=== PATIENT | female | born 1970 | race Caucasian/White ===

== ENCOUNTER 2017-05-09 10:27 | Outpatient (CLI) | payer OTHER ==
--- NOTE | 2017-05-10 20:21 | Mammography Report ---
DIGITAL SCREENING MAMMOGRAM: 05/09/2017 CLINICAL INDICATION: A 47-year-old with history of benign biopsy, family history of breast cancer fo r screening. TECHNIQUE: Routine CC and MLO projections were obtained of the breasts as well as bilateral implant displaced views. COMPARISON: 10/2015, 08/2013, 06/2012, 05/2011, 05/2010, 04/2009, 04/2008 FINDINGS: The breasts again demonstrate heterogeneously dense fibroglandular parenchyma bilaterally. Coarse, typically benign calcifications are present. Bilateral subpectoral saline implants are sta ble. No suspicious masses, clustered microcalcifications, or regions of architectural distortion are identified. IMPRESSION: BENIGN FINDINGS. RECOMMENDATION: Routine annual screening unless otherwise clinically indicated. BIRADS CATEGORY 2 - BENIGN FINDINGS. STANDARD QUALIFYING STATEMENTS 1. This examination was reviewed with the aid of Computer-Aided Detection (CAD). 2. A negative or benign imaging report should not delay biopsy if clinically suspicious findings are present. Consider surgical consultation if warranted. More than 5% of cancers are not identified by i maging. 3. Dense breasts may obscure an underlying neoplasm. JOB #: [id number] EXT JOB #:[id number]
== END 2017-05-09 10:28 | disposition home or self-care (01) ==
LOC: DI.N 10:27
PROVIDERS: ATTEND Physician Assistant Medical
DX: Z12.31 Encounter for screening mammogram for malignant neoplasm of breast (principal); Z80.3 Family history of malignant neoplasm of breast
CPT/HCPCS: 77067

== ENCOUNTER 2019-07-10 10:56 | Outpatient (CLI) | payer OTHER ==
--- NOTE | 2019-07-14 11:01 | Mammography Report ---
Reason: SCREENING MAMMO Procedure Date: 07/10/2019 Accession Number: [id number] / [id number] Procedure: MGN - Screening Mammo Dig w/Implants CPT Code: FULL RESULT: EXAM: Screening Mammo Dig w/Implants DATE: 07/10/2019 11:46 AM CLINICAL HISTORY: Routine screening, history of implants mother with breast cancer. TECHNIQUE: (B) - Bilateral CC and MLO views were obtained. COMPARISON: 05/09/2017, 11/02/2015, 09/23/2013 PARENCHYMAL PATTERN: (D) - The breasts demonstrate heterogeneously dense fibroglandular parenchyma bilaterally. FINDINGS: No significant interval change. There are no suspicious masses, calcifications, or areas of distortion. Bilateral breast implants are stable best appreciated on the CC displaced view is a nodule in the medial left breast which is unchanged compared with 2012. This likely lies inferiorly on the lateral projection. IMPRESSION: Negative examination. BI-RADS category 1. RECOMMENDATION: (ANNUAL) - Recommend routine annual screening mammography. BI-RADS CATEGORY: (1) - Negative. STANDARD QUALIFYING STATEMENTS: 1. This examination was not reviewed with the aid of Computer-Aided Detection (CAD). 2. A negative or benign imaging report should not preclude biopsy if clinically suspicious findings are present. 3. Dense breasts may obscure an underlying neoplasm. 4. This examination was reviewed without the aid of 3D breast imaging (tomosynthesis).
== END 2019-07-10 10:57 | disposition home or self-care (01) ==
LOC: DI.N 10:56
DX: Z12.31 Encounter for screening mammogram for malignant neoplasm of breast (principal); Z98.82 Breast implant status; Z80.3 Family history of malignant neoplasm of breast
CPT/HCPCS: 77067

== ENCOUNTER 2019-11-18 14:17 | Outpatient (CLI) | payer OTHER | END 2019-11-18 14:18 | disposition home or self-care (01) | LOC: LAB.R 14:17 | PROVIDERS: ATTEND Family Medicine | DX: N39.0 Urinary tract infection, site not specified (principal) | CPT/HCPCS: 87086; 87181 ==

== ENCOUNTER 2020-03-25 08:00 | Outpatient (CLI) | payer OTHER ==
[2020-03-25 13:28] LABS: BASOPHILS % (AUTO) 0.5 %; EOSINOPHILS # (AUTO) 0.1 10^3/uL (0.0-0.7); EOSINOPHILS % (AUTO) 1.4 %; HGB - HEMOGLOBIN 13.5 g/dL (12.0-16.0); LYMPHOCYTES % (AUTO) 30.3 %; MEAN CORPUSCULAR HEMOGLOBIN 31.3 pg (27.0-31.0); MEAN CORPUSCULAR HGB CONC 31.9 g/dL (32.0-36.0); MEAN CORPUSCULAR VOLUME 98.1 fL (81.0-99.0); MEAN PLATELET VOLUME 10.7 fL (7.9-10.8); MONOCYTES # (AUTO) 0.5 10^3/uL (0.0-1.0); NEUTROPHILS % (AUTO) 60.5 %; PLT - PLATELET COUNT 302 10^3/uL (130-450); RED BLOOD COUNT 4.31 10^6/uL (4.20-5.40); RED CELL DISTRIBUTION WIDTH 13.1 % (12.0-15.0); WHITE BLOOD COUNT 6.6 x10^3/uL (4.8-10.8)
[2020-03-25 13:58] LABS: ALBUMIN 3.6 g/dL (3.2-5.5); ALBUMIN/GLOBULIN RATIO 1.1 (1.0-2.2); ALKALINE PHOSPHATASE 39 IU/L (42-121); ALT ALANINE AMINOTRANSFERASE 20 IU/L (10-60); AST ASPARTATE AMINOTRANSFERASE 27 IU/L (10-42); BILIRUBIN,TOTAL 0.9 mg/dL (0.2-1.0); BUN - BLOOD UREA NITROGEN 26 mg/dL (6-20); CALCIUM 8.6 mg/dL (8.5-10.3); CARBON DIOXIDE - CO2 27 mmol/L (21-32); CHLORIDE 106 mmol/L (101-111); CHOL/HDL RATIO 2.9 (<4.4); CHOLESTEROL 206 mg/dL; CREATININE 0.6 mg/dL (0.4-1.0); GLUCOSE 91 mg/dL (70-100); HDL CHOLESTEROL 71 mg/dL; LDL CHOLESTEROL,CALCULATED 116 mg/dL; LDL/HDL RATIO 1.6 (<4.4); SODIUM 138 mmol/L (135-145); TOTAL PROTEIN 6.8 g/dL (6.7-8.2); VLDL CHOLESTEROL 19 mg/dL
== END 2020-03-25 23:59 | disposition home or self-care (01) ==
LOC: LAB.WCP 08:00
PROVIDERS: ATTEND Physician Assistant Medical
DX: Z00.00 Encounter for general adult medical examination without abnormal findings (principal)
CPT/HCPCS: 36415; 80053; 80061; 83721; 84443; 85025

== ENCOUNTER 2020-03-28 14:11 | Outpatient (CLI) | payer OTHER ==
--- NOTE | 2020-03-28 16:26 | Ultrasound Report ---
Reason: POSTMENOPAUSAL BLEEDING Procedure Date: 03/28/2020 Accession Number: [id number] / [id number] Procedure: US - Pelvic w/Transvaginal CPT Code: Final Report FULL RESULT: PROCEDURE: Pelvic w/Transvaginal INDICATIONS: POSTMENOPAUSAL BLEEDING TECHNIQUE: Real-time scanning was performed of the pelvic organs, with image documentation. Additional endovaginal scanning was necessary due to incomplete visualization of the adnexal and endometrial structures by transabdominal scanning. COMPARISON: CT abdomen pelvis 09/05/2015, ultrasound pelvis 07/10/2013 FINDINGS: Transabdominal scanning: Limited scanning through the kidneys shows no hydronephrosis. No pathologic free abdominal or pelvic fluid. Endovaginal scanning: Uterus: Uterus is normal in size at 12.1 x 5.0 x 8.1 cm. There are focal areas of heterogeneous echogenicity identified. There is seen in the left lateral posterior subserosal region measuring 4.9 x 3.9 x 4.4 cm. A right fundal subserosal focus measuring 1.5 x 1.5 x 1.8 cm is present. A right posterior subserosal focus is identified measuring 2.7 x 2.0 x 2.6 cm. Areas of uterine heterotopic echogenicity appear more prominent when compared to 2012. The endometrium measures 7 mm in combined thickness. Nabothian cyst is present. Area of calcification is noted within the cervix. In addition, a nodular appearing focus of slightly increased echogenicity is noted within the cervix measuring approximately 5 x 8 mm. Ovaries: Right ovary measures 3.8 x 2.6 x 3.47 m. Right ovarian cyst is present measuring 2.4 x 2.2 x 2.4 cm. Left ovary measures 2.3 x 1.2 x 2.4 cm. IMPRESSION: 1. Right ovarian cyst. 2. Focal areas of heterogeneous echogenicity within the uterus appearing most suggestive of fibroids. They appear more prominent when compared to 2012. 3. Nodular focus of echogenicity within the cervix overall nonspecific. This was present on prior exam. Further evaluation with CRIMINOLOGY PROFESSOR consult is recommended. 4. Endometrium measures 7 mm which is considered mildly thickened given postmenopausal bleeding and CRIMINOLOGY PROFESSOR evaluation is recommended. Reviewed by: Martha Laguna MD on 03/28/2020 4:22 PM PDT Approved by: Martha Laguna MD on 03/28/2020 4:22 PM PDT Station ID: [id number]
== END 2020-03-28 14:12 | disposition home or self-care (01) ==
LOC: DI 14:11
PROVIDERS: ATTEND Physician Assistant Medical
DX: N95.0 Postmenopausal bleeding (principal); N83.201 Unspecified ovarian cyst, right side; R93.89 Abnormal findings on diagnostic imaging of other specified body structures
CPT/HCPCS: 76830; 76856

== ENCOUNTER 2020-04-15 16:51 | Outpatient (CLI) | payer OTHER ==
--- NOTE | 2020-04-22 15:43 | Ultrasound Report ---
PROCEDURE: Head or Neck Soft Tissue INDICATIONS: THYROID NODULE TECHNIQUE: Real-time scanning was performed of the thyroid gland, with image documentation. COMPARISON: None FINDINGS: Right: Thyroid lobe measures 4.9 x 1.6 x 1.7 cm, and is homogeneous in echotexture. Left: Thyroid lobe measures 5.5 x 2.3 x 2.4 cm, and is homogenous in echotexture. Isthmus: 5 mm thick. Nodule number: One Location: Right lateral inferior Size: 1.0 x 0.5 x 0.6 cm. Composition: Spongiform Echogenicity: Hypoechoic Shape: wider than tall. Margins: Smooth Echogenic foci: None Total points: 2 ACR TI-RADS category: 2 Nodule number: Two Location: Right medial inferior Size: 0.6 x 0.4 x 0.5 cm. Composition: Spongiform Echogenicity: Hypoechoic Shape: wider than tall. Margins: Smooth Echogenic foci: None Total points: 2 ACR TI-RADS category: 2 Nodule number: Three Location: Isthmus Size: 1.5 x 0.5 x 1.3 cm. Composition: Spongiform Echogenicity: Hypoechoic Shape: wider than tall. Margins: Smooth Echogenic foci: Punctate Total points: 5 ACR TI-RADS category: 4 Nodule number: Four Location: Left superior Size: 0.8 x 0.7 x 0.8 cm. Composition: Cystic Echogenicity: Anechoic Shape: wider than tall. Margins: Smooth Echogenic foci: None Total points: 0 ACR TI-RADS category: 1 Nodule number: 5 Location: Left mid Size: 2.7 x 1.6 x 2.1 cm. Composition: Predominantly cystic Echogenicity: Anechoic Shape: wider than tall. Margins: Smooth Echogenic foci: Punctate Total points: 3 ACR TI-RADS category: 3 IMPRESSION: 1. Lesions 1, 2 and 4 require no additional follow-up as below secondary to small size. 2. Lesion 3 is category 4. FNA is recommended secondary to size and category. 3. Lesion 5 is category 3. FNA is recommended secondary to size and category. ACR TI-RADS definitions and recommendations: TI-RADS 1 (benign): 0 points. FNA not needed. TI-RADS 2 (not suspicious): 2 points. FNA not needed. TI-RADS 3 (mildly suspicious): 3 points. ? FNA if 2.5 cm or larger, follow up if 1.5 cm or larger (at 1, 3, and 5 years). TI-RADS 4 (moderately suspicious): 4-6 points. ? FNA if 1.5 cm or larger, follow up if 1 cm or larger (at 1, 2, 3, and 5 years). TI-RADS 5 (highly suspicious): 7 points or more. ? FNA if 1 cm or larger, follow up if 0.5 cm or larger (every year for 5 years). Reviewed by: Martha Laguna MD on 04/22/2020 3:42 PM PDT Approved by: Martha Laguna MD on 04/22/2020 3:42 PM PDT Station ID: [id number]
== END 2020-04-15 16:52 | disposition home or self-care (01) ==
LOC: DI 16:51
PROVIDERS: ATTEND Physician Assistant Medical
DX: E04.2 Nontoxic multinodular goiter (principal)
CPT/HCPCS: 76536

== ENCOUNTER 2020-09-29 15:17 | Outpatient (CLI) | payer OTHER | END 2020-09-29 15:18 | disposition home or self-care (01) | LOC: COV 15:17 | PROVIDERS: ATTEND Family Medicine | DX: R50.9 Fever, unspecified (principal); R06.02 Shortness of breath; M79.10 Myalgia, unspecified site; J34.89 Other specified disorders of nose and nasal sinuses; R09.81 Nasal congestion; Z20.828 Contact with and (suspected) exposure to other viral communicable diseases ==

== ENCOUNTER 2020-12-14 07:00 | Outpatient (CLI) | payer OTHER ==
[2020-12-14 12:46] LABS: BASOPHILS % (AUTO) 0.6 %; EOSINOPHILS # (AUTO) 0.1 10^3/uL (0.0-0.7); EOSINOPHILS % (AUTO) 1.3 %; HGB - HEMOGLOBIN 13.7 g/dL (12.0-16.0); LYMPHOCYTES # (AUTO) 1.7 10^3/uL (1.5-3.5); LYMPHOCYTES % (AUTO) 35.8 %; MEAN CORPUSCULAR HEMOGLOBIN 32.1 pg (27.0-31.0); MEAN CORPUSCULAR HGB CONC 32.6 g/dL (32.0-36.0); MEAN CORPUSCULAR VOLUME 98.4 fL (81.0-99.0); MEAN PLATELET VOLUME 11.2 fL (7.9-10.8); MONOCYTES # (AUTO) 0.4 10^3/uL (0.0-1.0); MONOCYTES % (AUTO) 9.4 %; NEUTROPHILS # (AUTO) 2.5 10^3/uL (1.5-6.6); NEUTROPHILS % (AUTO) 52.7 %; PLT - PLATELET COUNT 291 10^3/uL (130-450); RED BLOOD COUNT 4.27 10^6/uL (4.20-5.40); RED CELL DISTRIBUTION WIDTH 13.4 % (12.0-15.0); WHITE BLOOD COUNT 4.7 x10^3/uL (4.8-10.8)
[2020-12-14 13:16] LABS: ALBUMIN 4.2 g/dL (3.2-5.5); ALBUMIN/GLOBULIN RATIO 1.7 (1.0-2.2); ALKALINE PHOSPHATASE 38 IU/L (42-121); ALT ALANINE AMINOTRANSFERASE 19 IU/L (10-60); AST ASPARTATE AMINOTRANSFERASE 31 IU/L (10-42); BILIRUBIN,TOTAL 0.9 mg/dL (0.2-1.0); BUN - BLOOD UREA NITROGEN 29 mg/dL (6-20); CALCIUM 8.9 mg/dL (8.5-10.3); CARBON DIOXIDE - CO2 23 mmol/L (21-32); CHLORIDE 100 mmol/L (101-111); CHOL/HDL RATIO 3.6 (<4.4); CHOLESTEROL 300 mg/dL; CREATININE 0.6 mg/dL (0.4-1.0); GLUCOSE 83 mg/dL (70-100); HDL CHOLESTEROL 83 mg/dL; LDL CHOLESTEROL,CALCULATED 201 mg/dL; LDL/HDL RATIO 2.4 (<4.4); TOTAL PROTEIN 6.7 g/dL (6.7-8.2); VLDL CHOLESTEROL 16 mg/dL
[2020-12-14 13:27] LABS: CRP - C-REACTIVE PROTEIN < 1.0 mg/dL (0-1.0)
[2020-12-14 16:52] LABS: RHEUMATOID FACTOR NEGATIVE (Negative)
[2020-12-16 17:57] LABS: ANA SCREEN NEGATIVE (NEGATIVE)
== END 2020-12-14 23:59 | disposition home or self-care (01) ==
LOC: LAB.WCP 07:00
PROVIDERS: ATTEND Physician Assistant Medical
DX: Z00.00 Encounter for general adult medical examination without abnormal findings (principal); M25.50 Pain in unspecified joint
CPT/HCPCS: 36415; 80053; 80061; 82306; 83721; 84443; 85025; 85651; 86038; 86140; 86430

== ENCOUNTER 2020-12-23 06:55 | Outpatient (CLI) | payer OTHER ==
--- NOTE | 2020-12-23 09:20 | Ultrasound Report ---
PROCEDURE: Aorta Screening INDICATIONS: EPIGASTRIC PAIN TECHNIQUE: Real time scanning was performed of the aorta and iliac arteries, with image documentatio n. COMPARISON: None FINDINGS: Aorta: Proximal aortic diameter measures 2.4 x 2.3 cm. Mid-aorta measures 2.1 x 2.1 cm. Distal aor tic diameter is 2.0 x 1.7 cm. Iliac arteries: Right common iliac artery measures 1.2 x 1.1 cm. Left common iliac artery measures 1.2 x 1.0 cm. Minimal right iliac plaque. IMPRESSION: No aneurysmal dilation. Minimal calcified plaque. Reviewed by: Martha Laguna MD on 12/23/2020 8:19 AM [facility] Approved by: Martha Laguna MD on 12/23/2020 8:19 AM [facility] Station ID: [id number]
--- NOTE | 2020-12-23 15:48 | Ultrasound Report ---
PROCEDURE: Head or Neck Soft Tissue INDICATIONS: THYROID NODULE TECHNIQUE: Real-time scanning was performed of the thyroid gland, with image documentation. COMPARISON: None FINDINGS: Right: Thyroid lobe measures Size cm, and is homogeneous in echotexture. Left: Thyroid lobe measures Size cm, and is homogenous in echotexture. Isthmus: Size mm thick. Nodule number: One Location: Right inferior medial Size: 1.0 x 0.6 x 0.6 cm., Unchanged Composition: Solid Echogenicity: Hypoechoic Shape: wider than tall. Margins: Smooth Echogenic foci: None Total points: 4 ACR TI-RADS category: 4 Nodule number: Two Location: Right inferior lateral Size: 0.7 x 0.7 x 0.5 cm compared to 0.6 x 0.4 x 0.5 cm. Composition: Spongiform Echogenicity: Hypoechoic Shape: wider than tall. Margins: Smooth Echogenic foci: None Total points: 2 ACR TI-RADS category: 2 Nodule number: Three Location: Right isthmus Size: 1.2 x 0.4 x 1.1 cm compared to 1.5 x 0.5 x 1.3 cm Composition: Spongiform Echogenicity: Hypoechoic Shape: wider than tall. Margins: Smooth Echogenic foci: Punctate Total points: 5 ACR TI-RADS category: 4 Nodule number: Four Location: Left superior Size: 0.7 x 0.6 x 0.6 cm. Compared to prior exam. Compared to prior exam Composition: Spongiform Echogenicity: Hypoechoic Shape: wider than tall. Margins: Smooth Echogenic foci: None Total points: 2 ACR TI-RADS category: 2 Nodule number: 5 Location: Left superior Size: 1.7 x 0.5 x 1.5 cm compared to 0.8 x 0.7 x 0.8 cm Composition: Cystic Echogenicity: Anechoic Shape: wider than tall. Margins: Smooth Echogenic foci: Punctate Total points: 3 ACR TI-RADS category: 3 Nodule number: 6 Location: Left superior posterior Size: 1.3 x 0.6 x 0.8 cm. New compared to prior exam Composition: Spongiform Echogenicity: Hypoechoic Shape: wider than tall. Margins: Smooth Echogenic foci: None Total points: 2 ACR TI-RADS category: 2 Nodule number: 7 Location: Left mid lobe medially Size: 0.7 x 0.5 x 0.3 cm compared to 2.7 x 1.6 x 2.1 cm. This was previously biopsied Composition: Solid Echogenicity: Hypoechoic Shape: wider than tall. Margins: Smooth Echogenic foci: Punctate Total points: 4 ACR TI-RADS category: 4 IMPRESSION: 1. Lesions 4 and 6 are new compared to prior exam. Given category 2, no additional follow-up is recom mended. 2. Continue follow-up of lesion 1 given category 4 and size of 1 cm or larger at 1, 2, 3 and 5 years from initial visualization. 3. Lesion 2 is category 2 and no additional follow-up is recommended. 4. Biopsy lesions 3 and 7 may be reassessed when follow-up of lesion 1 is obtained. ACR TI-RADS definitions and recommendations: TI-RADS 1 (benign): 0 points. FNA not needed. TI-RADS 2 (not suspicious): 2 points. FNA not needed. TI-RADS 3 (mildly suspicious): 3 points. ? FNA if 2.5 cm or larger, follow up if 1.5 cm or larger (at 1, 3, and 5 years). TI-RADS 4 (moderately suspicious): 4-6 points. ? FNA if 1.5 cm or larger, follow up if 1 cm or larger (at 1, 2, 3, and 5 years). TI-RADS 5 (highly suspicious): 7 points or more. ? FNA if 1 cm or larger, follow up if 0.5 cm or larger (every year for 5 years). Reviewed by: Martha Laguna MD on 12/23/2020 2:46 PM [place] Approved by: Martha Laguna MD on 12/23/2020 2:46 PM [facility] Station ID: [id number]
== END 2020-12-23 06:56 | disposition home or self-care (01) ==
LOC: DI 06:55
PROVIDERS: ATTEND Physician Assistant Medical
DX: R10.13 Epigastric pain (principal); R09.89 Other specified symptoms and signs involving the circulatory and respiratory systems; E04.1 Nontoxic single thyroid nodule

== ENCOUNTER 2021-01-06 06:57 | Outpatient (CLI) | payer OTHER ==
--- NOTE | 2021-01-06 12:10 | Ultrasound Report ---
PROCEDURE: Abdomen Complete INDICATIONS: EPIGASTRIC PAIN TECHNIQUE: Real-time scanning was performed of the abdominal and retroperitoneal organs, with image documentatio n. COMPARISON: None. FINDINGS: Liver: Liver is normal in size and slightly heterogeneous in echotexture. Gallbladder: The gallbladder is normal without stones, sludge, wall thickening, or pericholecystic fl uid. Biliary ducts: Intrahepatic bile ducts are non-dilated. Extrahepatic bile duct caliber measures 4 m m. Normal is 6-7 mm or less in diameter, or 10 mm or less post-cholecystectomy. Pancreas: Visualized portions of the pancreas are sonographically normal. Spleen: Spleen is normal in size and homogeneous in echotexture. Kidneys: Kidneys are normal in size and echotexture. Right kidney measures 10.0 cm long; left kidne y measures 11.2 cm long. No hydronephrosis or nephrolithiasis. No solid masses. Aorta: Visualized aorta is normal in caliber at less than 3 cm. Iliacs: Proximal common iliac arteries are normal in caliber at less than 2.5 cm. Small amount of r ight common iliac artery plaque. IVC: Intrahepatic inferior vena cava is patent. Miscellaneous: No free abdominal fluid. No evidence of hernia in the area of lump. IMPRESSION: 1. Normal pancreas and gallbladder. 2. No evidence of epigastric hernia. If there is continued concern for hernia, CT of the abdomen coul d be performed. Reviewed by: Teena Diaz MD on 01/06/2021 12:09 PM PST Approved by: Teena Diaz MD on 01/06/2021 12:09 PM PST Station ID: [id number]
== END 2021-01-06 06:58 | disposition home or self-care (01) ==
LOC: DI 06:57
PROVIDERS: ATTEND Physician Assistant Medical
DX: R10.13 Epigastric pain (principal)

== ENCOUNTER 2021-03-09 08:00 | Outpatient (CLI) | payer OTHER ==
[2021-03-09 12:37] LABS: CHOL/HDL RATIO 3.3 (<4.4); CHOLESTEROL 258 mg/dL; HDL CHOLESTEROL 79 mg/dL; LDL CHOLESTEROL,CALCULATED 163 mg/dL; LDL/HDL RATIO 2.1 (<4.4); TRIGLYCERIDES 82 mg/dL; VLDL CHOLESTEROL 16 mg/dL
== END 2021-03-09 23:59 | disposition home or self-care (01) ==
LOC: LAB.WCP 08:00
PROVIDERS: ATTEND Physician Assistant Medical
DX: E78.5 Hyperlipidemia, unspecified (principal)
CPT/HCPCS: 36415; 80061; 83721

== ENCOUNTER 2021-04-13 12:39 | Outpatient (CLI) | payer OTHER ==
--- NOTE | 2021-04-14 10:35 | Mammography Report ---
BILATERAL DIGITAL SCREENING MAMMOGRAM 3D/2D WITH AUGMENTATION: 04/13/2021 CLINICAL: Routine screening. Comparison is made to exams dated: 07/10/2019 mammogram, 05/09/2017 mammogram, and 11/02/2015 mammogram - [facility]. There are scattered fibroglandular elements in both breasts. Bilateral breast implants are stable and intact. No significant masses, calcifications, or other findings are seen in either breast. There has been no significant interval change. IMPRESSION: NEGATIVE There is no mammographic evidence of malignancy. A 1 year screening mammogram is recommended. This exam was interpreted at Station ID: [id number]. NOTE: For mammograms, a report in lay terms will be sent to the patient. Approximately 15% of breast malignancies will not be visualized mammographically. In the management of a palpable breast mass, a negative mammogram must not discourage biopsy of a clinically suspicious lesion. Electronically Signed By: Jose Jackman M.D. slc/penrad:04/13/2021 14:01:39 ACR BI-RADS Category 1: Negative 3341F PARENCHYMAL PATTERN: (A) - The breast(s) demonstrate(s) scattered fibroglandular densities. BI-RADS CATEGORY: (1) - 1 RECOMMENDATION: (ANNUAL) - Recommend routine annual screening mammography. [id number] 1 year screening LATERALITY: (B)
== END 2021-04-13 12:40 | disposition home or self-care (01) ==
LOC: DI 12:39
DX: Z12.31 Encounter for screening mammogram for malignant neoplasm of breast (principal)

== ENCOUNTER 2021-08-11 07:21 | Outpatient (CLI) | payer OTHER ==
[2021-08-11 13:19] LABS: CHOL/HDL RATIO 3.5 (<4.4); CHOLESTEROL 241 mg/dL; HDL CHOLESTEROL 69 mg/dL; LDL CHOLESTEROL,CALCULATED 152 mg/dL; LDL/HDL RATIO 2.2 (<4.4); TRIGLYCERIDES 98 mg/dL; VLDL CHOLESTEROL 20 mg/dL
== END 2021-08-11 23:59 | disposition home or self-care (01) ==
LOC: LAB.WCP 07:21
PROVIDERS: ATTEND Physician Assistant Medical
DX: E78.5 Hyperlipidemia, unspecified (principal)
CPT/HCPCS: 36415; 80061; 83721

== ENCOUNTER 2021-12-22 06:54 | Outpatient (CLI) | payer OTHER ==
--- NOTE | 2021-12-22 19:30 | Ultrasound Report ---
PROCEDURE: Head or Neck Soft Tissue INDICATIONS: THYROID NODULE TECHNIQUE: Real-time scanning was performed of the thyroid gland, with image documentation. COMPARISON: 12/23/2020 FINDINGS: Right: Thyroid lobe measures 5.3 x 1.5 x 1.7 cm, and is homogeneous in echotexture. Left: Thyroid lobe measures 5.1 x 1.9 x 1.7 cm, and is homogenous in echotexture. Isthmus: 2 mm thick. Nodule number: One Location: Right inferior medial Size: 1.2 x 0.7 x 0.6 cm, previously 1.0 x 0.6 x 0.6 cm., Unchanged Composition: Solid Echogenicity: Hypoechoic Shape: wider than tall. Margins: Smooth Echogenic foci: Punctate Total points: 7 ACR TI-RADS category: 5 Nodule number: Two Location: Right inferior lateral Size: 0.8 x 0.7 x 0.7 cm, previously 0.7 x 0.7 x 0.5 cm . Composition: Predominantly solid Echogenicity: Hypoechoic Shape: wider than tall. Margins: Smooth Echogenic foci: None Total points: 4 ACR TI-RADS category: 4 Nodule number: Three Location: Right isthmus Size: 1.2 x 0.4 x 0.9 cm, previous 1.2 x 0.4 x 1.1 cm Composition: Spongiform Echogenicity: Hypoechoic Shape: wider than tall. Margins: Smooth Echogenic foci: Punctate Total points: 5 ACR TI-RADS category: 4 Nodule number: Four Location: Left superior Size: 0.6 x 0.5 x 0.5 cm, previously 0.7 x 0.6 x 0.6 cm. Composition: Spongiform Echogenicity: Hypoechoic Shape: wider than tall. Margins: Smooth Echogenic foci: Punctate Total points: 5 ACR TI-RADS category: 4 Nodule number: 5 Location: Left superior Size: 1.8 x 1.1 x 1.4 cm, previously 1.7 x 0.5 x 1.5 cm Composition: Cystic Echogenicity: Anechoic Shape: wider than tall. Margins: Smooth Echogenic foci: Punctate Total points: 3 ACR TI-RADS category: 3 Nodule number: 6 Location: Left superior posterior Size: Not currently visualized Nodule number: 7 Location: Left mid lobe medially Size: 0.6 x 0.2 x 0.3 cm, previously 0.7 x 0.5 x 0.3 cm Composition: Solid Echogenicity: Hyperechoic Shape: wider than tall. Margins: Smooth Echogenic foci: Macrocalcifications Total points: 4 ACR TI-RADS category: 4 IMPRESSION: Stable thyroid nodules. Consider biopsy of nodule #1 if not already performed. Otherwise, continue be st practice is surveillance schedule as below ACR TI-RADS definitions and recommendations: TI-RADS 1 (benign): 0 points. FNA not needed. TI-RADS 2 (not suspicious): 2 points. FNA not needed. TI-RADS 3 (mildly suspicious): 3 points. "FNA if 2.5 cm or larger, follow up if 1.5 cm or larger (at 1, 3, and 5 years). TI-RADS 4 (moderately suspicious): 4-6 points. "FNA if 1.5 cm or larger, follow up if 1 cm or larger (at 1, 2, 3, and 5 years). TI-RADS 5 (highly suspicious): 7 points or more. "FNA if 1 cm or larger, follow up if 0.5 cm or larger (every year for 5 years). Reviewed by: Carter Ford MD on 12/22/2021 6:28 PM [facility] Approved by: Carter Ford MD on 12/22/2021 6:28 PM [facility] Station ID: [id number]
== END 2021-12-22 06:55 | disposition home or self-care (01) ==
LOC: DI 06:54
PROVIDERS: ATTEND Physician Assistant Medical
DX: E04.2 Nontoxic multinodular goiter (principal)

== ENCOUNTER 2022-01-29 07:14 | Outpatient (CLI) | payer OTHER ==
[2022-01-29 12:22] LABS: BASOPHILS % (AUTO) 0.8 %; EOSINOPHILS # (AUTO) 0.1 10^3/uL (0.0-0.7); EOSINOPHILS % (AUTO) 1.3 %; HGB - HEMOGLOBIN 13.2 g/dL (12.0-16.0); LYMPHOCYTES # (AUTO) 1.7 10^3/uL (1.5-3.5); LYMPHOCYTES % (AUTO) 36.5 %; MEAN CORPUSCULAR HEMOGLOBIN 31.4 pg (27.0-31.0); MEAN CORPUSCULAR VOLUME 95.2 fL (81.0-99.0); MEAN PLATELET VOLUME 10.5 fL (7.9-10.8); MONOCYTES # (AUTO) 0.4 10^3/uL (0.0-1.0); MONOCYTES % (AUTO) 8.4 %; NEUTROPHILS # (AUTO) 2.5 10^3/uL (1.5-6.6); NEUTROPHILS % (AUTO) 52.6 %; PLT - PLATELET COUNT 299 10^3/uL (130-450); RED CELL DISTRIBUTION WIDTH 13.2 % (12.0-15.0); WHITE BLOOD COUNT 4.8 x10^3/uL (4.8-10.8)
[2022-01-29 12:36] LABS: ALBUMIN 4.1 g/dL (3.2-5.5); ALBUMIN/GLOBULIN RATIO 1.4 (1.0-2.2); ALKALINE PHOSPHATASE 48 IU/L (42-121); ALT ALANINE AMINOTRANSFERASE 26 IU/L (10-60); AST ASPARTATE AMINOTRANSFERASE 26 IU/L (10-42); BILIRUBIN,TOTAL 1.1 mg/dL (0.2-1.0); BUN - BLOOD UREA NITROGEN 23 mg/dL (6-20); CARBON DIOXIDE - CO2 27 mmol/L (21-32); CHLORIDE 102 mmol/L (101-111); CHOL/HDL RATIO 3.1 (<4.4); CHOLESTEROL 257 mg/dL; CREATININE 0.6 mg/dL (0.4-1.0); GFR - MDRD 105 (>89); GLUCOSE 100 mg/dL (70-100); HDL CHOLESTEROL 83 mg/dL; LDL CHOLESTEROL,CALCULATED 158 mg/dL; LDL/HDL RATIO 1.9 (<4.4); POTASSIUM 4.2 mmol/L (3.5-5.0); SODIUM 137 mmol/L (135-145); TRIGLYCERIDES 82 mg/dL; VLDL CHOLESTEROL 16 mg/dL
[2022-01-29 12:48] LABS: THYROID STIMULATING HORMONE 1.85 uIU/mL (0.34-5.60)
[2022-01-29 13:16] LABS: FOLLICLE STIMULATING HORMONE 36.21 mIU/mL
[2022-01-30 04:56] LABS: PROGESTERONE <0.5 ng/mL
[2022-01-30 05:56] LABS: ESTRADIOL 97 pg/mL
== END 2022-01-29 07:15 | disposition home or self-care (01) ==
LOC: LAB.N 07:14
PROVIDERS: ATTEND Physician Assistant Medical
DX: Z00.00 Encounter for general adult medical examination without abnormal findings (principal); E78.5 Hyperlipidemia, unspecified; E04.1 Nontoxic single thyroid nodule
CPT/HCPCS: 36415; 80053; 80061; 82670; 83001; 83721; 84144; 84443; 85025

== ENCOUNTER 2022-08-30 08:47 | Outpatient (CLI) | payer OTHER ==
[2022-08-30 13:16] LABS: THYROID STIMULATING HORMONE 1.72 uIU/mL (0.34-5.60)
[2022-08-30 13:18] LABS: FREE T3 3.43 pg/mL (2.5-3.9); FREE T4 (FREE THYROXINE) 0.75 ng/dL (0.58-1.64)
[2022-08-31 16:08] LABS: THYROGLOBULIN ANTIBODY <1.0 IU/mL (0.0-0.9); THYROID PEROXIDASE (TPO) AB <8 IU/mL (0-34)
== END 2022-08-30 08:48 | disposition home or self-care (01) ==
LOC: MERGE 08:47 → LAB.N 08:47
PROVIDERS: ATTEND Physician Assistant
DX: E04.9 Nontoxic goiter, unspecified (principal)
CPT/HCPCS: 36415; 84439; 84443; 84481; 86376; 86800

== ENCOUNTER 2022-09-03 07:44 | Outpatient (CLI) | payer OTHER ==
--- NOTE | 2022-09-13 11:26 | Ultrasound Report ---
PROCEDURE: Head or Neck Soft Tissue INDICATIONS: GOITER, LUMP IN THROAT TECHNIQUE: Real-time scanning was performed of the thyroid gland, with image documentation. COMPARISON: 12/22/2021 FINDINGS: Right: Thyroid lobe measures 4.7 x 1.7 x 1.6 cm, and is heterogeneous in echotexture. Left: Thyroid lobe measures 4.9 x 1.6 x 1.7 cm, and is heterogeneous in echotexture. Isthmus: 2.4 mm thick. Nodule number: One Location: Lower pole of right thyroid lobe medial aspect Size: 1 x 0.6 x 0.7 cm, previously 1.2 x 0.6 x 0.7 cm. Composition: Predominantly solid Echogenicity: Hypoechoic Shape: wider than tall. Margins: Smooth Echogenic foci: Punctate Total points: 6 ACR TI-RADS category: Moderately suspicious Nodule number: Two Location: Lateral aspect of lower pole right thyroid lobe Size: 0.8 x 0.6 x 0.6 cm, previously 0.8 x 0.7 x 0.7 cm. Composition: Predominantly solid Echogenicity: Hypoechoic Shape: wider than tall. Margins: Smooth Echogenic foci: None Total points: 4 ACR TI-RADS category: Moderately suspicious Nodule number: Three Location: Medial aspect of right thyroid lobe/isthmus Size: 1.1 x 0.3 x 1 cm, previously 1.2 x 0.4 x 0.9 cm. Composition: Spongiform Echogenicity: Hypoechoic Shape: wider than tall. Margins: Smooth Echogenic foci: Punctate Total points: 6 ACR TI-RADS category: Moderately suspicious. Nodule number: Four Location: Upper pole left thyroid lobe Size: 0.7 x 0.5 x 0.6 cc, previously 0.6 x 0.5 x 0.5 cm. Composition: Spongiform Echogenicity: Hypoechoic Shape: wider than tall. Margins: Smooth Echogenic foci: Punctate Total points: 6 ACR TI-RADS category: Moderately suspicious. Nodule number: 5 Location: Upper pole left thyroid lobe Size: 1.2 x 0.6 x 1.2 cc, previously 1.8 x 1.1 x 1.4 cm. Composition: Cystic Echogenicity: Hypoechoic Shape: wider than tall. Margins: Smooth Echogenic foci: None Total points: 2 ACR TI-RADS category: Not suspicious. Nodule number: 6 Location: Posterior aspect of upper pole left thyroid lobe. Size: No longer seen on the current study. 1.3 x 0.6 x 0.8 cm seen on 04/15/2020 study. Nodule number: 7 Location: Mid pole left thyroid lobe Size: 0.5 x 0.4 x 0.5 cc, previously 0.6 x 0.2 x 0.3 cm. Composition: Solid Echogenicity: Hypoechoic Shape: wider than tall. Margins: Ill-defined Echogenic foci: Macrocalcifications Total points: 6 ACR TI-RADS category: Moderately suspicious. IMPRESSION: 1. Patient is known bilateral thyroid nodules are essentially stable in size and appearance from prio r study. Continued ultrasound follow-up is recommended. ACR TI-RADS definitions and recommendations: TI-RADS 1 (benign): 0 points. FNA not needed. TI-RADS 2 (not suspicious): 2 points. FNA not needed. TI-RADS 3 (mildly suspicious): 3 points. "FNA if 2.5 cm or larger, follow up if 1.5 cm or larger (at 1, 3, and 5 years). TI-RADS 4 (moderately suspicious): 4-6 points. "FNA if 1.5 cm or larger, follow up if 1 cm or larger (at 1, 2, 3, and 5 years). TI-RADS 5 (highly suspicious): 7 points or more. "FNA if 1 cm or larger, follow up if 0.5 cm or larger (every year for 5 years). Reviewed by: Paul Sung MD on 09/13/2022 11:25 AM PST Approved by: Paul Sung MD on 09/13/2022 11:25 AM PST Station ID: [id number]
== END 2022-09-03 07:45 | disposition home or self-care (01) ==
LOC: DI 07:44 → MERGE 07:44 → DI 07:45
PROVIDERS: ATTEND Physician Assistant
DX: E04.2 Nontoxic multinodular goiter (principal)

== ENCOUNTER 2024-02-20 14:22 | Outpatient (CLI) | payer BC ==
--- NOTE | 2024-02-21 08:07 | Mammography Report ---
BILATERAL DIGITAL SCREENING MAMMOGRAM 3D/2D WITH AUGMENTATION: 02/20/2024 CLINICAL: Routine screening. Family history of breast cancer. Comparison is made to exams dated: 06/06/2022 mammogram, 04/13/2021 mammogram, 07/10/2019 mammogram, mammogram, 11/02/2015 mammogram, and 09/23/2013 mammogram - [facility]. There are scattered areas of fibroglandular density in both breasts (category b / 25%-50% glandular t issue). There is an asymmetry in the left breast middle depth superior region seen on the mediolateral obliqu e view only. No other significant masses, calcifications, or other findings are seen in either breast. IMPRESSION: INCOMPLETE: NEEDS ADDITIONAL IMAGING EVALUATION The asymmetry in the left breast is indeterminate. Additional views with possible ultrasound are rec ommended. Based on the Tyrer Cuzick model (a risk assessment model) the patient's lifetime risk is 15.8% and he r 10 year risk is 4.9%. According to the ACR, ACS, and NCCN guidelines, an annual breast MRI exam shayy ng with mammogram is recommended if the patient's lifetime risk is 20% or greater. This exam was interpreted at Station ID: [id number]. NOTE: For mammograms, a report in lay terms will be sent to the patient. Approximately 15% of breast malignancies will not be visualized mammographically. In the management of a palpable breast mass, a negative mammogram must not discourage biopsy of a clinically suspicious lesion. Electronically Signed By: Camilo denson/ej:02/20/2024 15:08:39 ACR BI-RADS Category 0: Incomplete 3340F PARENCHYMAL PATTERN: (A) - The breast(s) demonstrate(s) scattered fibroglandular densities. BI-RADS CATEGORY: (0) - 0 Mammo and [place] [id number] Immediate follow-up LATERALITY: (B)
== END 2024-02-20 14:23 | disposition home or self-care (01) ==
LOC: DI.N 14:22
DX: Z12.31 Encounter for screening mammogram for malignant neoplasm of breast (principal); Z80.3 Family history of malignant neoplasm of breast; R92.323 Mammographic fibroglandular density, bilateral breasts; R92.8 Other abnormal and inconclusive findings on diagnostic imaging of breast

== ENCOUNTER 2024-02-26 07:19 | Outpatient (CLI) | payer BC ==
[2024-02-26 12:00] LABS: BASOPHILS % (AUTO) 0.7 %; EOSINOPHILS # (AUTO) 0.1 10^3/uL (0.0-0.7); EOSINOPHILS % (AUTO) 1.3 %; HGB - HEMOGLOBIN 13.4 g/dL (12.0-16.0); LYMPHOCYTES # (AUTO) 1.5 10^3/uL (1.5-3.5); LYMPHOCYTES % (AUTO) 32.6 %; MEAN CORPUSCULAR HEMOGLOBIN 31.8 pg (27.0-31.0); MEAN CORPUSCULAR HGB CONC 33.5 g/dL (32.0-36.0); MEAN PLATELET VOLUME 10.8 fL (7.9-10.8); MONOCYTES # (AUTO) 0.4 10^3/uL (0.0-1.0); MONOCYTES % (AUTO) 8.4 %; NEUTROPHILS # (AUTO) 2.6 10^3/uL (1.5-6.6); NEUTROPHILS % (AUTO) 56.8 %; PLT - PLATELET COUNT 280 10^3/uL (130-450); RED BLOOD COUNT 4.21 10^6/uL (4.20-5.40); RED CELL DISTRIBUTION WIDTH 12.8 % (12.0-15.0); WHITE BLOOD COUNT 4.5 x10^3/uL (4.8-10.8)
[2024-02-26 12:30] LABS: THYROID STIMULATING HORMONE 1.65 uIU/mL (0.34-5.60)
[2024-02-26 12:37] LABS: ALBUMIN 4.3 g/dL (3.2-5.5); ALBUMIN/GLOBULIN RATIO 1.5 (1.0-2.2); ALKALINE PHOSPHATASE 64 IU/L (42-121); ALT ALANINE AMINOTRANSFERASE 14 IU/L (10-60); AST ASPARTATE AMINOTRANSFERASE 21 IU/L (10-42); BILIRUBIN,TOTAL 0.7 mg/dL (0.2-1.0); BUN - BLOOD UREA NITROGEN 30 mg/dL (6-20); CALCIUM 9.9 mg/dL (8.5-10.3); CARBON DIOXIDE - CO2 28 mmol/L (21-32); CHLORIDE 107 mmol/L (101-111); CHOLESTEROL 222 mg/dL; CREATININE 0.7 mg/dL (0.6-1.3); GFR - MDRD 87 (>89); GLUCOSE 98 mg/dL (74-104); HDL CHOLESTEROL 74 mg/dL; LDL CHOLESTEROL,CALCULATED 131 mg/dL; LDL/HDL RATIO 1.8 (<4.4); MAGNESIUM 1.9 mg/dL (1.7-2.3); POTASSIUM 4.1 mmol/L (3.5-4.5); SODIUM 140 mmol/L (135-145); TOTAL PROTEIN 7.1 g/dL (6.4-8.9); TRIGLYCERIDES 87 mg/dL (48-352); VLDL CHOLESTEROL 17 mg/dL
[2024-02-27 08:11] LABS: ESTRADIOL <5.0 pg/mL (.); PROGESTERONE 0.1 ng/mL (.)
== END 2024-02-26 07:20 | disposition home or self-care (01) ==
LOC: LAB.N 07:19
PROVIDERS: ATTEND Physician Assistant Medical
DX: Z00.00 Encounter for general adult medical examination without abnormal findings (principal); R23.2 Flushing; N95.1 Menopausal and female climacteric states; R00.2 Palpitations
CPT/HCPCS: 36415; 80053; 80061; 82670; 83001; 83721; 83735; 84144; 84443; 85025

== ENCOUNTER 2024-06-18 07:50 | Outpatient (CLI) | payer BC ==
--- NOTE | 2024-06-18 15:01 | DEXA Report ---
PROCEDURE: Dexa Spine and/or Hip INDICATIONS: POST MENOPAUSAL TECHNIQUE: Dual energy x-ray absorptiometry (DXA) was performed on a [employer]. Regions measur ed are the AP Spine, femoral neck, and if needed forearm. COMPARISON: None FINDINGS: Lumbar Spine: Bone Mineral Density: 1.098 g/cm/cm,T score: -0.7. Normal Left Femoral Neck: Bone Mineral Density: 0.935 g/cm/cm, T score: -0.7. Left Hip: Bone Mineral Density: 0.983 g/cm/cm,T score: -2. FRAX risk factors: None given. Not listed due to normal bone mineral density. (T score greater or equal to -1.0: NORMAL) (T score from -1.1 to -2.4: OSTEOPENIA) (T score less than or equal to -2.5 to: OSTEOPOROSIS) Impression: By WHO criteria, this patient has normal bone density. Patients with diagnosis of osteoporosis or osteopenia should have regular bone mineral density assess ment. For those eligible for Medicare, routine testing is allowed once every 2 years. Testing frequ ency can be increased for patients who have rapidly progressing disease or for those who are receivin g medical therapy to restore bone mass. Reviewed by: Dustin Cohen MD on 06/18/2024 3:00 PM PDT Approved by: Dustin Cohen MD on 06/18/2024 3:00 PM PDT Station ID: [id number]
== END 2024-06-18 07:51 | disposition home or self-care (01) ==
LOC: DI 07:50
PROVIDERS: ATTEND Physician Assistant Medical
DX: Z78.0 Asymptomatic menopausal state (principal)

== ENCOUNTER 2024-06-18 07:51 | Outpatient (CLI) | payer BC ==
--- NOTE | 2024-06-18 19:21 | Ultrasound Report ---
PROCEDURE: Soft Tissue Head or Neck INDICATIONS: GOITER TECHNIQUE: Real-time scanning was performed of the thyroid gland, with image documentation. COMPARISON: Ultrasound thyroid 09/03/2022, 12/22/2021, 12/23/2020, 05/25/2020, 04/15/2020 FINDINGS: Right: Thyroid lobe measures 5.0 x 1.7 x 2.1 cm. Left: Thyroid lobe measures 4.9 x 1.6 x 1.9 cm Isthmus: 0.3 cm thick. Echotexture: Heterogeneous. Nodule number: One Location: Right inferior Size: 1.2 x 0.8 x 0.8 cm compared to 1.0 x 0.6 x 0.7 cm. Composition: Solid. Echogenicity: Hypoechoic. Shape: wider than tall (0 points). Margins: Smooth (0 points). Echogenic foci: Punctate. Total points: 7 ACR TI-RADS category: 5 Nodule number: Two Location: Right inferior Size: 1.0 x 0.7 x 0.8 cm compared to 0.8 x 0.6 x 0.6 cm. Composition: Sob. Echogenicity: Hypoechoic. Shape: wider than tall (0 points). Margins: Smooth (0 points). Echogenic foci: None (0 points). Total points: 4 ACR TI-RADS category: 4 Nodule number: Three Location: Isthmus Size: 1.2 x 0.5 x 1.2 cm compared to 1.1 x 0.3 x 1.0 cm Composition: Predominantly solid. Echogenicity: Hypoechoic. Shape: wider than tall (0 points). Margins: Smooth (0 points). Echogenic foci: None (0 points). Total points: 4 ACR TI-RADS category: 4 Nodule number: Four Location: [Mid Size: 2.0 x 0.6 x 1.5 cm compared to 1.2 x 0.6 x 1.2 cm. Composition: Predominantly cystic. Echogenicity: Hypoechoic. Shape: wider than tall (0 points). Margins: Smooth (0 points). Echogenic foci: None (0 points). Total points: 3 ACR TI-RADS category: 3 Additional smaller foci are present not meeting the criteria for additional follow-up. IMPRESSION: Nodule 4 demonstrates interval increase in size. However, based on criteria below, annual follow-up i s recommended. Recommend correlation to prior FNA. Nodules 1 through 3 remains stable. Imaging follow-up for 5 years is recommended. ACR TI-RADS definitions and recommendations: TI-RADS 1 (benign): 0 points. FNA not needed. TI-RADS 2 (not suspicious): 2 points. FNA not needed. TI-RADS 3 (mildly suspicious): 3 points. "FNA if 2.5 cm or larger, follow up if 1.5 cm or larger (at 1, 3, and 5 years). TI-RADS 4 (moderately suspicious): 4-6 points. "FNA if 1.5 cm or larger, follow up if 1 cm or larger (at 1, 2, 3, and 5 years). TI-RADS 5 (highly suspicious): 7 points or more. "FNA if 1 cm or larger, follow up if 0.5 cm or larger (every year for 5 years). Reviewed by: Martha Laguna MD on 06/18/2024 7:19 PM PDT Approved by: Martha Laguna MD on 06/18/2024 7:19 PM PDT Station ID: [id number]
== END 2024-06-18 07:52 | disposition home or self-care (01) ==
LOC: DI 07:51
PROVIDERS: ATTEND Physician Assistant Medical
DX: E04.2 Nontoxic multinodular goiter (principal); Z78.0 Asymptomatic menopausal state